=== PATIENT | female | born 1970 | race Hispanic/Latino ===

== ENCOUNTER 2017-12-08 08:09 | Emergency (ER) | payer SELFPAY ==
[2017-12-08 08:17] VITALS: TEMP 98.4; O2SAT 94
--- NOTE | 2017-12-08 08:35 | ED.PDOC ---
History of Present Illness - General Chief Complaint: Skin/Abrasion/Tear Stated Complaint: Skin irritation - bug bites Time Seen by Provider: 12/08/17 08:27 Source: patient, family Exam Limitations: no limitations Additional Information: 47 YEAR OLD WHITE FEMALE HERE FOR EVALUATION OF INSECT BITES ONSET THURSDAY 5 DAYS AGO HER TOOK OUT A SMALL INSECT FROM HER BODY AND TOSSED IT HE BELIEVES IT IS A BED BUG NOW SHE HAS MULTIPLE AREAS OF RED WELL CIRCUMSCRIBED REDNESS ON THE TRUNK AND EXTREMITIES DOV LEFT POSTERIOR TRUNK SHE HAS NO FEVER CHILLS NO DRAINAGE THEY ARE ALL RED INDURATED AND PAINFUL SHE HAS HISTORY OF HYPERTENSION AND HYPOTHYROIDISM - History of Present Illness Timing/Duration: getting worse Severity: moderate Improving Factors: nothing Worsening Factors: nothing Associated Symptoms: denies symptoms Allergies/Adverse Reactions: Allergies NO KNOWN ALLERGY Allergy (Verified 12/08/17 08:17) Home Medications: Ambulatory Orders Levothyroxine Sodium [Synthroid] 50 mcg PO DAILY 04/06/14 Methylprednisolone [Medrol Dose Amandeep] 4 mg PO DAILY 6 Days #21 tab 12/08/17 Sulfa/Trimeth 800/160 (Ds) Tab [Bactrim DS Tab] 1 ea PO Q12HR #20 tab 12/08/17 Review of Systems - Review of Systems Constitutional: States: no symptoms reported EENTM: States: no symptoms reported Respiratory: States: no symptoms reported Cardiology: States: no symptoms reported Gastrointestinal/Abdominal: States: no symptoms reported Genitourinary: States: no symptoms reported Musculoskeletal: States: no symptoms reported Skin: States: no symptoms reported Neurological: States: no symptoms reported Endocrine: States: no symptoms reported Hematologic/Lymphatic: States: no symptoms reported Past Medical History (General) - Patient Medical History Hx Stroke: No Hx Congestive Heart Failure: No Hx Thyroid Disease: Yes Hx Diabetes: No Surgical History: cholecystectomy - Vaccination History Hx Influenza Vaccination: No Hx Pneumococcal Vaccination: No - Social History Hx Tobacco Use: No - Female History Patient is a Female of Child Bearing Age (10 -59 yrs old): Yes Patient : No Family Medical History - Family History Father Living Status: Still Living Hx Cardiac Disease: Yes Hx Family Diabetes: Yes Physical Exam - Physical Exam General Appearance: Alert, Comfortable Ears, Nose, Throat: hearing grossly normal, normal ENT inspection, normal pharynx Neck: non-tender, full range of motion, supple Cardiovascular/Chest: normal peripheral pulses, regular rate, rhythm, no edema, no JVD Back Exam: normal inspection, no CVA tenderness Extremity: normal range of motion, non-tender, normal inspection 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 Copy, Patient Portal Self Enrollment Instructions: DI for Abrasion Home Medications: Ambulatory Orders Levothyroxine Sodium [Synthroid] 50 mcg PO DAILY 04/06/14 Methylprednisolone [Medrol Dose Amandeep] 4 mg PO DAILY 6 Days #21 tab 12/08/17 Sulfa/Trimeth 800/160 (Ds) Tab [Bactrim DS Tab] 1 ea PO Q12HR #20 tab 12/08/17
[2017-12-08] MEDS ORDERED: CLINDAMYCIN IV 900MG 900 MG in PREMIX BAG 1 BAG IVPB ONE (08:37)
[2017-12-08] MEDS ORDERED: DEXAMETHASONE INJ 10 MG/ML VIAL IV ONE (08:38)
[2017-12-08] MEDS ORDERED: CLINDAMYCIN IV 900MG 50 ML IVPB ONE (09:03)
[2017-12-08 10:57] VITALS: BP 160/111
== END 2017-12-08 10:15 | disposition home or self-care (01) ==
LOC: ER 08:09
DX: S30.860A Insect bite (nonvenomous) of lower back and pelvis, initial encounter (principal); T14.8XXA Other injury of unspecified body region, initial encounter; L03.90 Cellulitis, unspecified; I10 Essential (primary) hypertension; E03.9 Hypothyroidism, unspecified; W57.XXXA Bitten or stung by nonvenomous insect and other nonvenomous arthropods, initial encounter
CPT/HCPCS: 36415; 80048; 85025; J1100; J3490